=== PATIENT | female | born 1970 | race Caucasian/White ===

== ENCOUNTER 2018-07-24 08:21 | Day surgery (SDC) | payer OTHER ==
[~2018-07-24] VITALS: Ht 157.5 cm; Wt 69.9 kg
[2018-07-24] MEDS ORDERED: LIDOCAINE 2% 100 MG/5 ML UJET TP ONE (09:31)
[2018-07-24] MEDS ORDERED: KETOROLAC 30 MG/ML VIAL ONE (09:39)
== END 2018-07-24 10:40 | disposition home or self-care (01) ==
LOC: MDS 08:21 → MMU 08:23 → MDS 10:40
PROVIDERS: ATTEND Internal Medicine Gastroenterology
DX: R10.31 Right lower quadrant pain (principal); E66.3 Overweight; Z68.28 Body mass index [BMI] 28.0-28.9, adult
CPT/HCPCS: 45378; 81025; J1885